=== PATIENT | male | born 1960 | race Asian ===

== ENCOUNTER 2017-02-18 21:27 | Emergency (ER) | payer SELFPAY ==
[~2017-02-18] VITALS: Ht 170.2 cm; Wt 78.0 kg
--- NOTE | 2017-02-18 22:00 | NUR ---
CALLED IN WAITING ROOM, NO ANSWER
[2017-02-18 22:46] VITALS: BP 138/78
== END 2017-02-18 23:25 | disposition home or self-care (01) ==
LOC: ER 21:41
DX: S16.1XXA Strain of muscle, fascia and tendon at neck level, initial encounter (principal); S39.012A Strain of muscle, fascia and tendon of lower back, initial encounter; V43.52XA Car driver injured in collision with other type car in traffic accident, initial encounter; Y93.89 Activity, other specified; Y92.410 Unspecified street and highway as the place of occurrence of the external cause; Y99.8 Other external cause status
CPT/HCPCS: 99283; A4606; Z7610